=== PATIENT | male | born 1955 | race Hispanic/Latino ===

== ENCOUNTER 2025-10-09 15:04 | Emergency (ER) | payer MEDICARE, MEDICAID ==
[2025-10-09 16:23] LABS: #Basophils 0.05 10x3/uL (0.0-0.2); #Eosinophils 0.09 10x3/uL (0.0-0.5); #Monocytes 0.89 10x3/uL (0.0-1.1); #Neutrophils 7.03 10x3/uL (1.5-8.4); %Basophils 0.5 % (0.0-2.0); %Eosinophils 1.0 % (0.0-6.0); %Lymphocytes 14.0 % (18.0-47.0); %Monocytes 9.4 % (0.0-10.0); %Neutrophils 74.6 % (40.0-75.0); Hematocrit 32.6 % (38.8-50.0); Hemoglobin 10.8 g/dL (13.5-17.5); Mean Corpuscular Hemoglobin 30.7 pg (27.0-33.0); Mean Corpuscular Volume 92.6 fL (81.2-95.1); Platelet Count 258 10x3/uL (150-450); Red Blood Cell (RBC) Count 3.52 10x6/uL (4.32-5.72); White Blood Cell (WBC) Count 9.43 10x3/uL (3.5-10.5)
[2025-10-09 16:36] LABS: ALT (SGPT) 16 U/L (Less than 45); AST (SGOT) 23 U/L (11-34); Albumin 3.6 g/dL (3.1-4.5); Alkaline Phosphatase 79 U/L (40-110); Anion Gap 12 mmol/L (10-20); BUN (Urea Nitrogen) 17 mg/dL (8.4-25.7); Bilirubin, Total 0.2 mg/dL (0.3-1.2); CK (CPK) 179 U/L (30-200); Calc. Creatinine Clearance 0 mL/min (70-130); Calcium 8.7 mg/dL (7.8-10.44); Carbon Dioxide 26 mmol/L (23-31); Chloride 106 mmol/L (98-107); Globulin 3.3 g/dL (2.4-3.5); Glucose 114 mg/dL (80-115); Lipase 24 U/L (8-78); Magnesium 1.8 mg/dL (1.6-2.6); Potassium 3.6 mmol/L (3.5-5.1); Sodium 140 mmol/L (136-145)
[2025-10-09 16:42] LABS: Troponin I Less than 0.010 ng/mL (< 0.028)
[2025-10-09 18:53] LABS: Glucose, Urine (Dipstick) Normal (Negative); Leukocyte Negative (Negative); Protein, Urine (Dipstick) Negative (Neg-Trace); Specific Gravity, Urine 1.010 (1.005-1.030)
[2025-10-09 19:39] LABS: Bacteria/HPF None Seen HPF (None Seen); CAUTI Indications for Culture Alt mental st,lethar; RBC/HPF None Seen HPF (0-3); Urine Culture Reflex No No; WBC/HPF None Seen HPF (0-3)
== END 2025-10-10 01:33 | disposition short-term general hospital (02) ==
LOC: CSHERS 15:04
DX: S12.300A Unspecified displaced fracture of fourth cervical vertebra, initial encounter for closed fracture (principal); R62.7 Adult failure to thrive; X58.XXXA Exposure to other specified factors, initial encounter
CPT/HCPCS: 36415; 70450; 70551; 71045; 72125; 72141; 74018; 74176; 80053; 81001; 82550; 83605; 83690; 83735; 83880; 84443; 84484; 85025; 93005